=== PATIENT | female | born 1965 | race Caucasian/White ===

== ENCOUNTER 2023-09-25 18:43 | Emergency (ER) | payer OTHER ==
[~2023-09-25] VITALS: Ht 160 cm; Wt 62.7 kg
[2023-09-25] MEDS ORDERED: NS 1,000 ML IV SCH (19:40)
[2023-09-25 20:22] LABS: BASO % 0.5 % (0.0-1.0); EOS # 0.1 10^3/uL (0.0-0.5); HEMATOCRIT 39.6 % (36.0-47.0); HEMOGLOBIN 13.3 g/dl (12.0-15.5); LYMPH # 2.8 10^3/uL (1.5-5.0); LYMPH % 43.1 % (24.0-44.0); MEAN CORPUSCULAR HEMOGLOBIN 31.4 pg (27.0-33.0); MEAN CORPUSCULAR HGB CONC 33.6 g/dl (32.0-36.5); MEAN CORPUSCULAR VOLUME 93.4 fl (80.0-96.0); MONO # 0.5 10^3/uL (0.0-0.8); MONO % 7.2 % (2.0-8.0); NEUTROPHILS # 3.1 10^3/uL (1.5-8.5); PLATELET COUNT, AUTOMATED 233 10^3/uL (150-450); RED BLOOD COUNT 4.24 10^6/uL (4.00-5.40); WHITE BLOOD COUNT 6.5 10^3/uL (4.0-10.0)
[2023-09-25 20:46] LABS: CK-MB VALUE MASS < 1.0 NG/ML (<3.6); LIPASE 36 U/L (12-53)
[2023-09-25 20:48] LABS: ALBUMIN 3.4 G/DL (3.2-5.2); ALKALINE PHOSPHATASE 32 U/L (46-116); ALT/SGPT 18 U/L (7.0-40); AST/SGOT 15 U/L (<34); BILIRUBIN,TOTAL 0.3 MG/DL (0.3-1.2); BLOOD UREA NITROGEN 7 MG/DL (9-23); CALCIUM LEVEL 8.7 MG/DL (8.5-10.1); CARBON DIOXIDE LEVEL 24 MMOL/L (20-31); CHLORIDE LEVEL 115 MMOL/L (98-107); CPK CREATINE PHOSPHOKINASE 64 U/L (34-145); CREATININE FOR GFR 0.89 MG/DL (0.55-1.30); GLOMERULAR FILTRATION RATE > 60.0 (>51); GLUCOSE, FASTING 89 MG/DL (60-100); MB/CK RELATIVE INDEX 1.56 (< OR =4); POTASSIUM SERUM 3.5 MMOL/L (3.5-5.1); SODIUM LEVEL 145 MMOL/L (136-145); TOTAL PROTEIN 5.7 G/DL (5.7-8.2)
[2023-09-25 20:50] LABS: THYROID STIMULATING HORMONE 0.306 uIU/ML (0.55-4.78)
[2023-09-25] MEDS ORDERED: ONDANSETRON 4MG 2ML VIAL IV ONE (21:40)
[2023-09-25] MEDS ORDERED: ISOVUE-370 76% 100ML VIAL As Ordered ONE (21:46)
[2023-09-25 23:16] VITALS: BP 118/77; TEMP 98.1
[2023-09-25 23:18] VITALS: O2SAT 100
== END 2023-09-26 00:03 | disposition home or self-care (01) ==
LOC: M ED 18:43
DX: R00.1 Bradycardia, unspecified (principal); R53.1 Weakness; I10 Essential (primary) hypertension; G90.A Postural orthostatic tachycardia syndrome [POTS]; G43.909 Migraine, unspecified, not intractable, without status migrainosus; E07.9 Disorder of thyroid, unspecified; F32.A Depression, unspecified; Z88.5 Allergy status to narcotic agent; Z88.8 Allergy status to other drugs, medicaments and biological substances; Z79.899 Other long term (current) drug therapy
CPT/HCPCS: 70450; 71045; 71260; 74177; 80053; 81001; 82550; 82553; 83690; 83735; 83880; 83970; 84100; 84443; 84484; 85025; 87040; 87486; 87581; 87633; 87798; 93005; 96374; 99285; J2405; Q9967

== ENCOUNTER → 2023-12-17 | Outpatient (CLI) | payer OTHER ==
[~2023-12-17] MED LIST: ASPI81TA26 PO; ATOR40TA75 PO; B-COTAB26 PO; D3 S1CAP3 PO; FLUD0.1T PO; FREM225A SQ; HYDR-4571 PO; HYDR200T46 PO; KRIL1CAP PO; LEVO75TA4 PO; LISI10TA22 PO; LISI5TAB11 PO; LORA1TAB23 PO; MAGN400C PO; MELA10CA6 PO; METO1TAB32 PO; NUED20CA PO; OMEP-173 PO; PARO40TA2 PO; PRAM1TAB7 PO; PROB250C PO; TIZA2TA PO; TOPI100T9 PO; TRAZ-252 PO; ZINC100T3 PO
== END ==
LOC: M WHC 10:49
PROVIDERS: ATTEND Nurse Practitioner Family
DX: Z12.31 Encounter for screening mammogram for malignant neoplasm of breast (principal); N63.21 Unspecified lump in the left breast, upper outer quadrant

== ENCOUNTER 2024-01-30 12:18 | Day surgery (SDC) | payer OTHER ==
[~2024-01-30] VITALS: Ht 162.6 cm; Wt 62.6 kg
[~2024-01-30 12:18] MED LIST changes: +AMLO1TAB24 PO; +NS 1,000 ML IV ONE
[2024-01-30] MEDS ORDERED: IMIT100T PO (12:39)
[2024-01-30] MEDS ORDERED: fentaNYL 100 MCG/2 ML INJECTION As Ordered ONE (12:51)
[2024-01-30] MEDS ORDERED: propofoL 500 MG/50 ML VIAL As Ordered ONE (12:54)
[2024-01-30] MEDS ORDERED: LIDOCAINE 2% 100MG/5ML SDV (FOR ANES.) As Ordered ONE (12:54)
[2024-01-30] MEDS ORDERED: ePHEDrine SULFATE 25 MG/5 ML(5MG/ML) SYRINGE As Ordered ONE (13:47)
[2024-01-30] MEDS ORDERED: PHENYLephrine 500MCG 5ML (100MCG/ML) SYRINGE As Ordered ONE (14:08)
[2024-01-30 14:14] VITALS: TEMP 98.5
[2024-01-30 14:30] VITALS: BP 112/74; O2SAT 100
== END 2024-01-30 14:44 | disposition home or self-care (01) ==
LOC: M OPP 12:18
PROVIDERS: ATTEND Internal Medicine Gastroenterology
DX: K64.8 Other hemorrhoids (principal); K64.4 Residual hemorrhoidal skin tags; K63.89 Other specified diseases of intestine; K52.9 Noninfective gastroenteritis and colitis, unspecified; K44.9 Diaphragmatic hernia without obstruction or gangrene; K22.89 Other specified disease of esophagus; K31.84 Gastroparesis; G47.30 Sleep apnea, unspecified; R07.9 Chest pain, unspecified; Z79.02 Long term (current) use of antithrombotics/antiplatelets; Z88.1 Allergy status to other antibiotic agents; Z88.5 Allergy status to narcotic agent; Z88.8 Allergy status to other drugs, medicaments and biological substances
CPT/HCPCS: 43239; 45380; 45385; 88305; J2371; J3010

== ENCOUNTER 2024-02-24 15:41 | Emergency (ER) | payer OTHER ==
[~2024-02-24] VITALS: Ht 160 cm; Wt 61.8 kg
[~2024-02-24 15:41] MED LIST changes: +IMIT100T PO; -NS 1,000 ML IV ONE
[2024-02-24 16:04] VITALS: TEMP 98.3
[2024-02-24 16:46] LABS: BASO # 0.1 10^3/uL (0.0-0.2); BASO % 0.7 % (0.0-1.0); EOS # 0.2 10^3/uL (0.0-0.5); EOS % 2.2 % (0.0-3.0); HEMATOCRIT 39.6 % (36.0-47.0); HEMOGLOBIN 13.5 g/dl (12.0-15.5); LYMPH # 2.4 10^3/uL (1.5-5.0); LYMPH % 27.6 % (24.0-44.0); MEAN CORPUSCULAR HEMOGLOBIN 31.6 pg (27.0-33.0); MEAN CORPUSCULAR HGB CONC 34.1 g/dl (32.0-36.5); MEAN CORPUSCULAR VOLUME 92.7 fl (80.0-96.0); MONO # 0.8 10^3/uL (0.0-0.8); MONO % 9.6 % (2.0-8.0); NEUTROPHILS # 5.2 10^3/uL (1.5-8.5); NEUTROPHILS % 59.7 % (36.0-66.0); PLATELET COUNT, AUTOMATED 261 10^3/uL (150-450); RED BLOOD COUNT 4.27 10^6/uL (4.00-5.40); WHITE BLOOD COUNT 8.8 10^3/uL (4.0-10.0)
[2024-02-24 17:24] LABS: INR 0.96; PARTIAL THROMBOPLASTIN TIME 27.8 SECONDS (24.8-34.2); PROTHROMBIN TIME 12.5 SECONDS (12.5-14.5)
[2024-02-24] MEDS ORDERED: ISOVUE-370 76% 100ML VIAL As Ordered ONE (17:48)
[2024-02-24] MEDS: MORPHINE 2 MG/ML 1ML VIAL IV PRN (17:54)
[2024-02-24] MEDS ORDERED: ONDANSETRON 4MG 2ML VIAL As Ordered ONE (18:01)
[2024-02-24 18:07] LABS: LIPASE 33 U/L (12-53)
[2024-02-24 18:10] LABS: ALBUMIN 3.8 G/DL (3.2-5.2); ALKALINE PHOSPHATASE 47 U/L (46-116); ALT/SGPT 35 U/L (7.0-40); AST/SGOT 24 U/L (<34); BILIRUBIN,DIRECT 0.2 MG/DL (<0.4); BILIRUBIN,TOTAL 0.6 MG/DL (0.3-1.2); BLOOD UREA NITROGEN 8 MG/DL (9-23); CALCIUM LEVEL 9.2 MG/DL (8.5-10.1); CARBON DIOXIDE LEVEL 26 MMOL/L (20-31); CHLORIDE LEVEL 105 MMOL/L (98-107); CK-MB VALUE MASS < 1.0 NG/ML (<3.6); CREATININE FOR GFR 0.85 MG/DL (0.55-1.30); GLOMERULAR FILTRATION RATE > 60.0 (>51); GLUCOSE, FASTING 83 MG/DL (60-100); POTASSIUM SERUM 3.6 MMOL/L (3.5-5.1); SODIUM LEVEL 139 MMOL/L (136-145); TOTAL PROTEIN 6.2 G/DL (5.7-8.2)
[2024-02-24 18:12] LABS: FREE T4 1.41 NG/DL (0.89-1.76); THYROID STIMULATING HORMONE 1.805 uIU/ML (0.55-4.78)
[2024-02-24 18:17] LABS: CPK CREATINE PHOSPHOKINASE 108 U/L (34-145); MB/CK RELATIVE INDEX 0.92 (< OR =4)
[2024-02-24] MEDS: ONDANSETRON 4MG 2ML VIAL IV ONE (18:28)
[2024-02-24 19:11] LABS: CK-MB VALUE MASS < 1.0 NG/ML (<3.6)
[2024-02-24] MEDS: MAALOX 30 ML SUSP *UDC PO ONE ×2 (19:11→22:15)
[2024-02-24] MEDS: NITROGLYCERIN 2% OINT 1 GM *U/D* PKT TOP ONE (19:25)
[2024-02-24 19:29] LABS: CPK CREATINE PHOSPHOKINASE 103 U/L (34-145); MB/CK RELATIVE INDEX 0.97 (< OR =4)
[2024-02-24] MEDS: MORPHINE 2 MG/ML 1ML VIAL IV ONE (22:07)
[2024-02-24] MEDS: NS 1,000 ML IV ONE (22:07)
[2024-02-24] MEDS: PANTOPRAZOLE 40MG VIAL IV ONE (22:07)
[2024-02-24] MEDS: PROMETHAZINE 25MG/ML 1ML VIAL IM ONE (22:08)
[2024-02-24] MEDS: GASTROGRAFIN SOLUTION 30ML PO SCH (22:08)
[2024-02-25] MEDS ORDERED: PROT1TAB2 PO (00:29)
[2024-02-25] MEDS ORDERED: MAALSUS19 PO (00:29)
[2024-02-25 00:30] VITALS: O2SAT 91
[2024-02-25 00:45] VITALS: BP 87/52
[2024-02-25] MEDS ORDERED: METOPROLOL TART 25 MG TABLET PO ONE (01:00)
== END 2024-02-25 01:02 | disposition home or self-care (01) ==
LOC: M ED 15:41
DX: K29.70 Gastritis, unspecified, without bleeding (principal); R07.9 Chest pain, unspecified; I10 Essential (primary) hypertension; K21.9 Gastro-esophageal reflux disease without esophagitis; Z87.19 Personal history of other diseases of the digestive system; F17.290 Nicotine dependence, other tobacco product, uncomplicated; Z79.82 Long term (current) use of aspirin; Z79.899 Other long term (current) drug therapy; Z88.5 Allergy status to narcotic agent; Z88.8 Allergy status to other drugs, medicaments and biological substances
CPT/HCPCS: 71045; 71275; 74176; 74177; 80047; 80048; 80076; 82550; 82553; 83690; 84439; 84443; 84484; 85025; 85610; 85730; 93005; 93041; 94760; 96361; 96372; 96374; 96375; 96376; 99285; C9113; J2405; J2550; Q9963; Q9967

== ENCOUNTER 2024-06-12 10:47 | Emergency (ER) | payer OTHER ==
[~2024-06-12] VITALS: Ht 162.6 cm; Wt 62.7 kg
[~2024-06-12 10:47] MED LIST changes: +MAALSUS19 PO; +PROT1TAB2 PO
[2024-06-12 11:17] LABS: BASO % 0.6 % (0.0-1.0); EOS # 0.1 10^3/uL (0.0-0.5); EOS % 1.9 % (0.0-3.0); HEMATOCRIT 41.7 % (36.0-47.0); HEMOGLOBIN 14.4 g/dl (12.0-15.5); LYMPH # 1.9 10^3/uL (1.5-5.0); MEAN CORPUSCULAR HGB CONC 34.5 g/dl (32.0-36.5); MEAN CORPUSCULAR VOLUME 89.9 fl (80.0-96.0); MONO # 0.6 10^3/uL (0.0-0.8); MONO % 9.2 % (2.0-8.0); NEUTROPHILS # 4.2 10^3/uL (1.5-8.5); NEUTROPHILS % 60.2 % (36.0-66.0); PLATELET COUNT, AUTOMATED 218 10^3/uL (150-450); RED BLOOD COUNT 4.64 10^6/uL (4.00-5.40); WHITE BLOOD COUNT 6.9 10^3/uL (4.0-10.0)
[2024-06-12 11:37] LABS: INR 0.98; PROTHROMBIN TIME 12.7 SECONDS (12.5-14.5)
[2024-06-12 11:46] LABS: LIPASE 36 U/L (12-53)
[2024-06-12 11:48] LABS: CPK CREATINE PHOSPHOKINASE 95 U/L (34-145)
[2024-06-12 11:52] LABS: ALBUMIN 3.9 G/DL (3.2-5.2); ALKALINE PHOSPHATASE 52 U/L (46-116); ALT/SGPT 26 U/L (7.0-40); AST/SGOT 18 U/L (<34); BILIRUBIN,DIRECT 0.2 MG/DL (<0.4); BILIRUBIN,TOTAL 0.6 MG/DL (0.3-1.2); CK-MB VALUE MASS < 1.0 NG/ML (<3.6); MB/CK RELATIVE INDEX 1.05 (< OR =4); TOTAL PROTEIN 6.8 G/DL (5.7-8.2)
[2024-06-12] MEDS ORDERED: OXYC-517 (12:00)
[2024-06-12] MEDS: LORazepam 1 MG TAB PO STA (12:16)
[2024-06-12] MEDS: IPRATROPIUM 0.5MG/ALBUTEROL 2.5MG INH SOL UD 3ML (DUONEB) NEB SCH (13:10)
[2024-06-12] MEDS: LORazepam 2 MG/ML 1ML VIAL IV STA (14:45)
[2024-06-12 16:00] VITALS: BP 161/79; TEMP 98; O2SAT 100
== END 2024-06-12 16:45 | disposition home or self-care (01) ==
LOC: EDBD 10:47 → M ED 10:47
DX: R07.89 Other chest pain (principal); I11.9 Hypertensive heart disease without heart failure; Z79.899 Other long term (current) drug therapy; Z88.5 Allergy status to narcotic agent; Z88.8 Allergy status to other drugs, medicaments and biological substances
CPT/HCPCS: 71045; 80047; 80076; 82550; 82553; 83690; 84484; 85025; 85610; 93005; 93041; 94760; 96374; 99285; J2060

== ENCOUNTER 2024-07-15 10:47 | Observation (INO) | payer OTHER ==
[~2024-07-15] VITALS: Ht 162.6 cm; Wt 59.5 kg
[~2024-07-15 10:47] MED LIST changes: +FLUDROCORTISONE ACETATE 0.1 MG TAB PO SCH; +LEVOTHYROXINE 75MCG TABLET (0.075MG) PO SCH; +METOPROLOL SUCC *XL* 25MG TAB (TopROL *XL*) PO SCH; +OXYC-517 PO; +amLODIPine 5 MG TAB PO SCH
[2024-07-15 11:18] LABS: VENOUS BASE EXCESS 1.5 (-2.0-2.0); VENOUS HCO3 21.7 MMOL/L (23.0-27.0); VENOUS O2 SATURATION 68.5 % (60.0-80.0); VENOUS PARTIAL PRESSURE CO2 24.3 mmHg (38.0-50.0); VENOUS PARTIAL PRESSURE O2 28.4 mmHg (30.0-50.0); VENOUS PH 7.569 UNITS (7.330-7.430); VENOUS TOTAL CO2 22.5 MMOL/L (24.0-28.0)
[2024-07-15 11:27] LABS: BASO # 0.1 10^3/uL (0.0-0.2); BASO % 0.7 % (0.0-1.0); EOS % 0.4 % (0.0-3.0); HEMATOCRIT 42.7 % (36.0-47.0); HEMOGLOBIN 14.5 g/dl (12.0-15.5); LYMPH # 1.9 10^3/uL (1.5-5.0); LYMPH % 28.7 % (24.0-44.0); MEAN CORPUSCULAR HEMOGLOBIN 30.2 pg (27.0-33.0); MONO # 0.6 10^3/uL (0.0-0.8); MONO % 9.2 % (2.0-8.0); NEUTROPHILS # 4.1 10^3/uL (1.5-8.5); NEUTROPHILS % 60.9 % (36.0-66.0); PLATELET COUNT, AUTOMATED 254 10^3/uL (150-450); WHITE BLOOD COUNT 6.7 10^3/uL (4.0-10.0)
[2024-07-15 11:45] LABS: ETHYL ALCOHOL (ETHANOL) < 0.003 % (0.000-0.010)
[2024-07-15] MEDS: METOCLOPRAMIDE INJ 10MG/2ML VIAL IV ONE (11:45)
[2024-07-15] MEDS: PANTOPRAZOLE 40MG VIAL IV ONE (11:45)
[2024-07-15 11:47] LABS: ALBUMIN 3.7 G/DL (3.2-5.2); ALKALINE PHOSPHATASE 46 U/L (35-104); ALT/SGPT 27 U/L (7.0-40); AST/SGOT 29 U/L (<34); BILIRUBIN,DIRECT 0.1 MG/DL (<0.4); BILIRUBIN,TOTAL 0.6 MG/DL (0.3-1.2); BLOOD UREA NITROGEN 9 MG/DL (9-23); CALCIUM LEVEL 9.1 MG/DL (8.5-10.1); CARBON DIOXIDE LEVEL 22 MMOL/L (20-31); CHLORIDE LEVEL 112 MMOL/L (98-107); CK-MB VALUE MASS < 1.0 NG/ML (<3.6); CREATININE FOR GFR 0.72 MG/DL (0.55-1.30); GLOMERULAR FILTRATION RATE > 60.0 (>51); GLUCOSE, FASTING 105 MG/DL (60-100); OSMOLALITY SERUM 302 MOSM/KG (275-295); POTASSIUM SERUM 3.8 MMOL/L (3.5-5.1); SALICYLATE LEVEL < 3.0 MG/DL (<30); SODIUM LEVEL 143 MMOL/L (136-145); TOTAL PROTEIN 6.8 G/DL (5.7-8.2)
[2024-07-15 11:48] LABS: THYROID STIMULATING HORMONE 0.744 uIU/ML (0.55-4.78)
[2024-07-15 11:53] LABS: CPK CREATINE PHOSPHOKINASE 79 U/L (34-145); MB/CK RELATIVE INDEX 1.26 (< OR =4)
[2024-07-15] MEDS: NS 500 ML IV ONE ×2 (12:01→13:51)
[2024-07-15] MEDS: LORazepam 2 MG/ML 1ML VIAL IV STA ×3 (12:15→13:34)
[2024-07-15] MEDS: diphenhydrAMINE 50MG/ML VIAL IV STA (12:15)
[2024-07-15] MEDS ORDERED: ISOVUE-370 76% 100ML VIAL As Ordered ONE (13:29)
[2024-07-15 13:30] LABS: CK-MB VALUE MASS < 1.0 NG/ML (<3.6); CPK CREATINE PHOSPHOKINASE 82 U/L (34-145); MB/CK RELATIVE INDEX 1.21 (< OR =4)
[2024-07-15] MEDS: NORCO, ANEXSIA 5/325MG TABLET (HYDROcodone/ACETAMINOPHEN) PO ONE (13:51)
[2024-07-15] MEDS ORDERED: MAALSUS19 PO (14:24)
[2024-07-15] MEDS ORDERED: LISI20TA33 PO (14:24)
[2024-07-15] MEDS ORDERED: HOME MED LIST COMPLETE! XX SCH (14:25)
[2024-07-15] MEDS ORDERED: OMEP-173 PO (14:26)
[2024-07-15] MEDS: tiZANidine 4 MG TAB PO ONE (14:54)
[2024-07-15] MEDS ORDERED: NS 1,000 ML IV SCH (15:15)
[2024-07-15] MEDS ORDERED: MOM 30ML SUSPENSION UDC PO PRN (15:15)
[2024-07-15] MEDS ORDERED: MAALOX 30 ML SUSP *UDC PO PRN (15:15)
[2024-07-15] MEDS ORDERED: ACETAMINOPHEN 325 MG TAB PO PRN (15:15)
[2024-07-15] MEDS ORDERED: tiZANidine 4 MG TAB PO PRN (15:35)
[2024-07-15] MEDS ORDERED: SUMAtriptan SUCCINATE 25 MG TAB PO PRN (15:35)
[2024-07-15 15:36] VITALS: BP 156/82; TEMP 97.8; O2SAT 100
[2024-07-15] MEDS ORDERED: LORazepam 1 MG TAB PO SCH (16:00)
[2024-07-15 16:32] LABS: PROCALCITONIN <0.04 ng/ml
[2024-07-15] MEDS ORDERED: DOCUSATE SODIUM 100MG CAPSULE PO SCH (21:00)
[2024-07-15] MEDS ORDERED: ATORVASTATIN 20 MG TAB PO SCH (21:00)
[2024-07-15] MEDS ORDERED: traZODone 50 MG TAB PO SCH (21:00)
[2024-07-15] MEDS ORDERED: OMEPRAZOLE 20MG CAP PO SCH (21:00)
[2024-07-15] MEDS ORDERED: PRAMIPEXOLE 1 MG TAB PO SCH (21:00)
[2024-07-15] MEDS ORDERED: NORCO, ANEXSIA 5/325MG TABLET (HYDROcodone/ACETAMINOPHEN) PO SCH (21:00)
[2024-07-15 22:38] LABS: AMPHETAMINES LEVEL URINE NEGATIVE (NEGATIVE); BARBITURATES URINE NEGATIVE (NEGATIVE); BENZODIAZEPINES URINE NEGATIVE (NEGATIVE); COCAINE METABOLITE URINE NEGATIVE (NEGATIVE); METHADONE URINE NEGATIVE (NEGATIVE); OPIATES URINE NEGATIVE (NEGATIVE); PHENCYCLIDINE URINE NEGATIVE (NEGATIVE)
[2024-07-15 22:41] LABS: CANNABINOIDS URINE POSITIVE (NEGATIVE)
[2024-07-16] MEDS ORDERED: ENOXAPARIN 40MG/0.4ML SYRINGE (J1650 PER 10MG) SC SCH (09:00)
== END 2024-07-15 16:16 | disposition left against medical advice (07) ==
LOC: M ED 10:47 → EDBD 10:47 → M ED INP 10:48
PROVIDERS: ADMIT Internal Medicine; ATTEND Internal Medicine
DX: R53.1 Weakness (principal); G25.0 Essential tremor; R53.81 Other malaise; R32 Unspecified urinary incontinence; R11.0 Nausea; R10.32 Left lower quadrant pain; R10.13 Epigastric pain; I10 Essential (primary) hypertension; G90.A Postural orthostatic tachycardia syndrome [POTS]; E78.5 Hyperlipidemia, unspecified; I31.39 Other pericardial effusion (noninflammatory); G47.33 Obstructive sleep apnea (adult) (pediatric); E03.9 Hypothyroidism, unspecified; F41.9 Anxiety disorder, unspecified; G47.00 Insomnia, unspecified; G43.909 Migraine, unspecified, not intractable, without status migrainosus; K29.70 Gastritis, unspecified, without bleeding; L40.50 Arthropathic psoriasis, unspecified; M19.90 Unspecified osteoarthritis, unspecified site; M79.7 Fibromyalgia; M35.7 Hypermobility syndrome; G25.81 Restless legs syndrome; M48.02 Spinal stenosis, cervical region; M50.220 Other cervical disc displacement, mid-cervical region, unspecified level; M47.812 Spondylosis without myelopathy or radiculopathy, cervical region; Z87.440 Personal history of urinary (tract) infections; Z98.1 Arthrodesis status; Z90.710 Acquired absence of both cervix and uterus; Z90.49 Acquired absence of other specified parts of digestive tract; Z90.89 Acquired absence of other organs; Z98.890 Other specified postprocedural states; Z87.891 Personal history of nicotine dependence; Z88.8 Allergy status to other drugs, medicaments and biological substances; Z79.899 Other long term (current) drug therapy; Z79.890 Hormone replacement therapy; Z79.891 Long term (current) use of opiate analgesic; Z66 Do not resuscitate
CPT/HCPCS: 70450; 71045; 74177; 80047; 80048; 80076; 80143; 80307; 81001; 82077; 82140; 82550; 82553; 82803; 83605; 83930; 84145; 84443; 84484; 85025; 87040; 93005; 93041; 94760; 96374; 96375; 96376; 99285; J1200; J2060; J2470; J2765; Q9967

== ENCOUNTER 2024-07-17 14:21 | Observation (INO) | payer OTHER ==
[~2024-07-17] VITALS: Ht 162.6 cm; Wt 57.9 kg
[~2024-07-17 14:21] MED LIST changes: -FLUDROCORTISONE ACETATE 0.1 MG TAB PO SCH; -LEVOTHYROXINE 75MCG TABLET (0.075MG) PO SCH; +LISI20TA33 PO; -METOPROLOL SUCC *XL* 25MG TAB (TopROL *XL*) PO SCH; -amLODIPine 5 MG TAB PO SCH
[2024-07-17 15:34] LABS: BASO % 0.3 % (0.0-1.0); HEMATOCRIT 41.3 % (36.0-47.0); HEMOGLOBIN 14.5 g/dl (12.0-15.5); LYMPH # 2.5 10^3/uL (1.5-5.0); MEAN CORPUSCULAR HEMOGLOBIN 30.3 pg (27.0-33.0); MEAN CORPUSCULAR HGB CONC 35.1 g/dl (32.0-36.5); MEAN CORPUSCULAR VOLUME 86.2 fl (80.0-96.0); MONO # 1.1 10^3/uL (0.0-0.8); MONO % 9.5 % (2.0-8.0); NEUTROPHILS % 68.9 % (36.0-66.0); PLATELET COUNT, AUTOMATED 332 10^3/uL (150-450); RED BLOOD COUNT 4.79 10^6/uL (4.00-5.40); WHITE BLOOD COUNT 11.7 10^3/uL (4.0-10.0)
[2024-07-17 16:13] LABS: LIPASE 35 U/L (12-53)
[2024-07-17 16:14] LABS: CK-MB VALUE MASS 2.7 NG/ML (<3.6)
[2024-07-17 16:15] LABS: AMYLASE 49 U/L (30-118)
[2024-07-17 16:16] LABS: ALBUMIN 4.2 G/DL (3.2-5.2); ALKALINE PHOSPHATASE 49 U/L (35-104); ALT/SGPT 29 U/L (7.0-40); AST/SGOT 31 U/L (<34); BILIRUBIN,DIRECT 0.3 MG/DL (<0.4); BILIRUBIN,TOTAL 0.7 MG/DL (0.3-1.2); BLOOD UREA NITROGEN < 5 MG/DL (9-23); CALCIUM LEVEL 9.6 MG/DL (8.5-10.1); CARBON DIOXIDE LEVEL 20 MMOL/L (20-31); CHLORIDE LEVEL 109 MMOL/L (98-107); CPK CREATINE PHOSPHOKINASE 689 U/L (34-145); CREATININE FOR GFR 0.64 MG/DL (0.55-1.30); GLOMERULAR FILTRATION RATE > 60.0 (>51); GLUCOSE, FASTING 113 MG/DL (60-100); MB/CK RELATIVE INDEX 0.39 (< OR =4); POTASSIUM SERUM 3.1 MMOL/L (3.5-5.1); SODIUM LEVEL 143 MMOL/L (136-145); TOTAL PROTEIN 6.8 G/DL (5.7-8.2)
[2024-07-17] MEDS: NS 1,000 ML IV ONE ×2 (16:19→17:31)
[2024-07-17 17:30] LABS: MB/CK RELATIVE INDEX 0.35 (< OR =4)
[2024-07-17] MEDS: ONDANSETRON 4MG 2ML VIAL IV ONE (17:31)
[2024-07-17] MEDS: POTASSIUM CHLORIDE 10MEQ SR TABLET PO ONE (17:31)
[2024-07-17] MEDS: KCL 10MEQ/100ML SWI (KRUN) 10 MEQ in IV 1 EA IV ONE (17:32)
[2024-07-17] MEDS ORDERED: ISOVUE-370 76% 100ML VIAL As Ordered ONE (18:11)
[2024-07-17] MEDS ORDERED: ACETAMINOPHEN 325 MG TAB PO PRN (18:40)
[2024-07-17] MEDS ORDERED: SENN-186 PO (18:55)
[2024-07-17] MEDS ORDERED: HOME MED LIST COMPLETE! XX SCH (18:55)
[2024-07-17] MEDS ORDERED: HYDR-161 PO (18:55)
[2024-07-17] MEDS ORDERED: LORA2TAB14 PO (18:55)
[2024-07-17 19:05] LABS: PROCALCITONIN <0.04 ng/ml
[2024-07-17] MEDS: MORPHINE 2 MG/ML 1ML VIAL IV PRN (19:44)
[2024-07-17] MEDS: NS 1,000 ML IV SCH (19:48)
[2024-07-17] MEDS ORDERED: LORazepam 0.5 MG TAB PO SCH (21:00)
[2024-07-17] MEDS: FLUTICASONE PROP 0.05% NASAL SPRAY 16 GM (FLONASE) NARES SCH (21:00)
[2024-07-17 21:07] VITALS: BP 185/101; TEMP 101.1; O2SAT 99
[2024-07-17] MEDS: SUCRALFATE SUSP 1GM/10ML UD PO SCH (21:47)
[2024-07-17] MEDS: PANTOPRAZOLE 40MG VIAL IV SCH (21:47)
[2024-07-17] MEDS: PRAMIPEXOLE 1 MG TAB PO SCH (21:48)
[2024-07-17] MEDS: traZODone 50 MG TAB PO SCH (21:48)
[2024-07-17] MEDS: LORazepam 1 MG TAB PO SCH (21:48)
[2024-07-17] MEDS: PARoxetine 20MG TABLET PO SCH (21:48)
[2024-07-17] MEDS: ATORVASTATIN 20 MG TAB PO SCH (21:48)
[2024-07-17] MEDS: RAMELTEON 8 MG TAB (ROZEREM) PO SCH (21:48)
[2024-07-17] MEDS: ACETAMINOPHEN *IV* 1,000 MG in IV 1 EA IV ONE (21:48)
[2024-07-17] MEDS ORDERED: SODIUM CHLORIDE NASAL 0.65% SPRAY BTL (OCEAN) PRN (23:55)
[2024-07-17 23:58] VITALS: BP 162/87; TEMP 97.1; O2SAT 100
[2024-07-18] MEDS: SUMAtriptan SUCCINATE 25 MG TAB PO PRN (01:21)
[2024-07-18] MEDS: ONDANSETRON 4MG 2ML VIAL IV PRN (02:35)
[2024-07-18 03:50] VITALS: BP 159/86; TEMP 97.3; O2SAT 99
[2024-07-18 05:26] LABS: BASO % 0.3 % (0.0-1.0); EOS % 0.2 % (0.0-3.0); HEMATOCRIT 39.6 % (36.0-47.0); HEMOGLOBIN 13.3 g/dl (12.0-15.5); LYMPH # 2.5 10^3/uL (1.5-5.0); LYMPH % 20.1 % (24.0-44.0); MEAN CORPUSCULAR HEMOGLOBIN 30.1 pg (27.0-33.0); MEAN CORPUSCULAR HGB CONC 33.6 g/dl (32.0-36.5); MEAN CORPUSCULAR VOLUME 89.6 fl (80.0-96.0); MONO # 1.6 10^3/uL (0.0-0.8); MONO % 12.4 % (2.0-8.0); NEUTROPHILS # 8.4 10^3/uL (1.5-8.5); NEUTROPHILS % 66.8 % (36.0-66.0); PLATELET COUNT, AUTOMATED 284 10^3/uL (150-450); RED BLOOD COUNT 4.42 10^6/uL (4.00-5.40); WHITE BLOOD COUNT 12.6 10^3/uL (4.0-10.0)
[2024-07-18] MEDS: LEVOTHYROXINE 75MCG TABLET (0.075MG) PO SCH (05:44)
[2024-07-18 05:55] LABS: ALBUMIN 3.8 G/DL (3.2-5.2); ALKALINE PHOSPHATASE 48 U/L (35-104); ALT/SGPT 32 U/L (7.0-40); AST/SGOT 48 U/L (<34); BILIRUBIN,TOTAL 0.8 MG/DL (0.3-1.2); BLOOD UREA NITROGEN < 5 MG/DL (9-23); CALCIUM LEVEL 9.1 MG/DL (8.5-10.1); CARBON DIOXIDE LEVEL 24 MMOL/L (20-31); CHLORIDE LEVEL 112 MMOL/L (98-107); CREATININE FOR GFR 0.66 MG/DL (0.55-1.30); GLOMERULAR FILTRATION RATE > 60.0 (>51); GLUCOSE, FASTING 92 MG/DL (60-100); MAGNESIUM LEVEL 1.8 MG/DL (1.8-2.4); POTASSIUM SERUM 3.4 MMOL/L (3.5-5.1); SODIUM LEVEL 143 MMOL/L (136-145); TOTAL PROTEIN 6.6 G/DL (5.7-8.2)
[2024-07-18 08:09] VITALS: BP 158/77; TEMP 97.5; O2SAT 99
[2024-07-18] MEDS: POTASSIUM CHLORIDE 10MEQ SR TABLET PO ONE (08:22)
[2024-07-18] MEDS: FLUDROCORTISONE ACETATE 0.1 MG TAB PO SCH (08:23)
[2024-07-18] MEDS: amLODIPine 5 MG TAB PO SCH (08:23)
[2024-07-18] MEDS: METOPROLOL SUCC *XL* 25MG TAB (TopROL *XL*) PO SCH (08:23)
[2024-07-18] MEDS: ENOXAPARIN 40MG/0.4ML SYRINGE (J1650 PER 10MG) SC SCH (08:24)
[2024-07-18] MEDS ORDERED: LORA2TAB14 PO (10:39)
[2024-07-18] MEDS ORDERED: CARA1TAB6 PO (10:39)
[2024-07-18] MEDS ORDERED: PROT1TAB2 PO (10:39)
[2024-07-18] MEDS ORDERED: OXYC-517 PO ×2 (10:39→13:17)
[2024-07-18 12:12] VITALS: BP 167/80; TEMP 97.8; O2SAT 98
[2024-07-18] MEDS ORDERED: ATIV1TAB7 PO (13:17)
[2024-07-18 13:21] VITALS: BP 150/80
[2024-07-18 13:23] VITALS: BP 150/80
[2024-07-18] MEDS: **hydrALAZINE HCL** 25 MG TAB PO ONE (13:23)
[2024-07-18 14:30] VITALS: BP 145/78
== END 2024-07-18 15:02 | disposition home health service (06) ==
LOC: M ED 14:21 → EDBD 14:21 → M ED INP 14:22 → M PCU 20:49
PROVIDERS: ADMIT Internal Medicine; ATTEND Internal Medicine
DX: R10.9 Unspecified abdominal pain (principal); R11.2 Nausea with vomiting, unspecified; R19.7 Diarrhea, unspecified; R50.9 Fever, unspecified; E87.20 Acidosis, unspecified; E87.6 Hypokalemia; R25.1 Tremor, unspecified; R53.1 Weakness; I10 Essential (primary) hypertension; G90.A Postural orthostatic tachycardia syndrome [POTS]; E78.5 Hyperlipidemia, unspecified; G47.33 Obstructive sleep apnea (adult) (pediatric); E03.9 Hypothyroidism, unspecified; E04.1 Nontoxic single thyroid nodule; F41.9 Anxiety disorder, unspecified; G47.00 Insomnia, unspecified; G43.909 Migraine, unspecified, not intractable, without status migrainosus; L40.50 Arthropathic psoriasis, unspecified; M19.90 Unspecified osteoarthritis, unspecified site; M79.7 Fibromyalgia; G25.81 Restless legs syndrome; M35.7 Hypermobility syndrome; M47.812 Spondylosis without myelopathy or radiculopathy, cervical region; M50.20 Other cervical disc displacement, unspecified cervical region; M48.02 Spinal stenosis, cervical region; D80.3 Selective deficiency of immunoglobulin G [IgG] subclasses; Z90.49 Acquired absence of other specified parts of digestive tract; Z90.79 Acquired absence of other genital organ(s); Z98.1 Arthrodesis status; Z90.89 Acquired absence of other organs; Z98.890 Other specified postprocedural states; F17.290 Nicotine dependence, other tobacco product, uncomplicated; Z88.5 Allergy status to narcotic agent; Z79.899 Other long term (current) drug therapy; Z79.890 Hormone replacement therapy
CPT/HCPCS: 36415; 71045; 74177; 80047; 80048; 80053; 80076; 81001; 82150; 82550; 82553; 83605; 83690; 83735; 84145; 84484; 85025; 87040; 87486; 87581; 87633; 87798; 93005; 93041; 96361; 96365; 96366; 96372; 96375; 96376; 99285; J0131; J1650; J2405; J2470; Q9967

== ENCOUNTER 2024-07-20 22:25 | Emergency (ER) | payer OTHER ==
[~2024-07-20] VITALS: Ht 162.6 cm; Wt 59.4 kg
[~2024-07-20 22:25] MED LIST changes: +ATIV1TAB7 PO; +CARA1TAB6 PO; +HYDR-161 PO; +LORA2TAB14 PO; +SENN-186 PO
[2024-07-20 23:56] VITALS: TEMP 98.8
[2024-07-21 00:29] LABS: BASO # 0.1 10^3/uL (0.0-0.2); BASO % 0.8 % (0.0-1.0); EOS # 0.3 10^3/uL (0.0-0.5); EOS % 3.1 % (0.0-3.0); HEMATOCRIT 38.4 % (36.0-47.0); HEMOGLOBIN 13.5 g/dl (12.0-15.5); LYMPH # 2.6 10^3/uL (1.5-5.0); LYMPH % 29.3 % (24.0-44.0); MEAN CORPUSCULAR HGB CONC 35.2 g/dl (32.0-36.5); MEAN CORPUSCULAR VOLUME 88.3 fl (80.0-96.0); MONO % 11.3 % (2.0-8.0); NEUTROPHILS # 4.9 10^3/uL (1.5-8.5); NEUTROPHILS % 55.3 % (36.0-66.0); PLATELET COUNT, AUTOMATED 286 10^3/uL (150-450); RED BLOOD COUNT 4.35 10^6/uL (4.00-5.40); WHITE BLOOD COUNT 8.8 10^3/uL (4.0-10.0)
[2024-07-21 00:51] LABS: LIPASE 55 U/L (12-53)
[2024-07-21 00:53] LABS: ALBUMIN 4.2 G/DL (3.2-5.2); ALKALINE PHOSPHATASE 47 U/L (35-104); ALT/SGPT 54 U/L (7.0-40); AST/SGOT 84 U/L (<34); BILIRUBIN,DIRECT 0.2 MG/DL (<0.4); BILIRUBIN,TOTAL 0.5 MG/DL (0.3-1.2); BLOOD UREA NITROGEN 5 MG/DL (9-23); CALCIUM LEVEL 9.8 MG/DL (8.5-10.1); CARBON DIOXIDE LEVEL 24 MMOL/L (20-31); CHLORIDE LEVEL 108 MMOL/L (98-107); CREATININE FOR GFR 0.63 MG/DL (0.55-1.30); GLOMERULAR FILTRATION RATE > 60.0 (>51); GLUCOSE, FASTING 101 MG/DL (60-100); POTASSIUM SERUM 3.1 MMOL/L (3.5-5.1); SODIUM LEVEL 143 MMOL/L (136-145); TOTAL PROTEIN 6.9 G/DL (5.7-8.2)
[2024-07-21] MEDS ORDERED: ISOVUE-370 76% 100ML VIAL As Ordered ONE (01:58)
[2024-07-21] MEDS: LORazepam 2 MG/ML 1ML VIAL IV STA (02:03)
[2024-07-21] MEDS: ONDANSETRON 4MG 2ML VIAL IV ONE (02:39)
[2024-07-21 04:17] VITALS: BP 174/89; O2SAT 100
[2024-07-21] MEDS ORDERED: VALI5TAB PO (04:17)
[2024-07-21] MEDS ORDERED: POTA10CA70 PO (04:20)
[2024-07-21] MEDS: diazePAM 5MG TABLET PO ONE (04:24)
[2024-07-21] MEDS: POTASSIUM CHLORIDE 10MEQ SR TABLET PO ONE (04:24)
== END 2024-07-21 04:36 | disposition home or self-care (01) ==
LOC: M ED 22:25
DX: E87.6 Hypokalemia (principal); F13.20 Sedative, hypnotic or anxiolytic dependence, uncomplicated; I10 Essential (primary) hypertension; E78.5 Hyperlipidemia, unspecified; F41.1 Generalized anxiety disorder; M79.7 Fibromyalgia; G90.A Postural orthostatic tachycardia syndrome [POTS]; D80.3 Selective deficiency of immunoglobulin G [IgG] subclasses; F17.290 Nicotine dependence, other tobacco product, uncomplicated; Z79.899 Other long term (current) drug therapy; Z88.6 Allergy status to analgesic agent; Z88.5 Allergy status to narcotic agent; Z88.8 Allergy status to other drugs, medicaments and biological substances
CPT/HCPCS: 70491; 71260; 80048; 80076; 83605; 83690; 85025; 87486; 87581; 87633; 87798; 93041; 96374; 96375; 99284; J2060; J2405; Q9967

== ENCOUNTER 2024-07-23 05:10 | Inpatient (IN) | payer OTHER ==
[~2024-07-23] VITALS: Ht 162.6 cm; Wt 56.8 kg
[~2024-07-23 05:10] MED LIST changes: +POTA10CA70 PO; +VALI5TAB PO
[2024-07-23 05:47] LABS: BASO # 0.1 10^3/uL (0.0-0.2); BASO % 0.7 % (0.0-1.0); EOS # 0.1 10^3/uL (0.0-0.5); EOS % 1.1 % (0.0-3.0); HEMATOCRIT 42.7 % (36.0-47.0); HEMOGLOBIN 15.1 g/dl (12.0-15.5); LYMPH # 2.4 10^3/uL (1.5-5.0); LYMPH % 28.5 % (24.0-44.0); MEAN CORPUSCULAR HEMOGLOBIN 30.7 pg (27.0-33.0); MEAN CORPUSCULAR HGB CONC 35.4 g/dl (32.0-36.5); MEAN CORPUSCULAR VOLUME 86.8 fl (80.0-96.0); MONO # 0.7 10^3/uL (0.0-0.8); MONO % 8.7 % (2.0-8.0); NEUTROPHILS # 5.1 10^3/uL (1.5-8.5); NEUTROPHILS % 60.9 % (36.0-66.0); PLATELET COUNT, AUTOMATED 345 10^3/uL (150-450); RED BLOOD COUNT 4.92 10^6/uL (4.00-5.40); WHITE BLOOD COUNT 8.3 10^3/uL (4.0-10.0)
[2024-07-23 06:10] LABS: CK-MB VALUE MASS 1.6 NG/ML (<3.6); INR 0.87; LIPASE 46 U/L (12-53); PROTHROMBIN TIME 12.2 SECONDS (12.5-14.5)
[2024-07-23 06:30] LABS: ALBUMIN 4.4 G/DL (3.2-5.2); ALKALINE PHOSPHATASE 52 U/L (35-104); ALT/SGPT 64 U/L (7.0-40); AST/SGOT 77 U/L (<34); BILIRUBIN,DIRECT 0.3 MG/DL (<0.4); BILIRUBIN,TOTAL 0.7 MG/DL (0.3-1.2); BLOOD UREA NITROGEN < 5 MG/DL (9-23); CALCIUM LEVEL 10.7 MG/DL (8.5-10.1); CARBON DIOXIDE LEVEL 21 MMOL/L (20-31); CHLORIDE LEVEL 109 MMOL/L (98-107); CPK CREATINE PHOSPHOKINASE 1939 U/L (34-145); CREATININE FOR GFR 0.73 MG/DL (0.55-1.30); GLOMERULAR FILTRATION RATE > 60.0 (>51); GLUCOSE, FASTING 119 MG/DL (60-100); MB/CK RELATIVE INDEX 0.08 (< OR =4); POTASSIUM SERUM 3.2 MMOL/L (3.5-5.1); SODIUM LEVEL 143 MMOL/L (136-145); TOTAL PROTEIN 7.1 G/DL (5.7-8.2)
[2024-07-23] MEDS ORDERED: SUCR1TA PO (08:17)
[2024-07-23] MEDS ORDERED: PANT40TA29 PO (08:17)
[2024-07-23] MEDS ORDERED: IBUP200C28 PO (08:17)
[2024-07-23] MEDS ORDERED: ONDA-83 PO (08:17)
[2024-07-23] MEDS ORDERED: ACET1TAB55 PO (08:17)
[2024-07-23] MEDS ORDERED: POTA-150 PO (08:17)
[2024-07-23] MEDS ORDERED: DIAZ5TAB PO (08:17)
[2024-07-23] MEDS ORDERED: MIRA3350 PO (08:17)
[2024-07-23] MEDS ORDERED: TIZA4CAP PO (08:17)
[2024-07-23] MEDS ORDERED: ATOR80TA59 PO (08:17)
[2024-07-23] MEDS ORDERED: TIZA10TA PO (08:19)
[2024-07-23] MEDS ORDERED: HOME MED LIST COMPLETE! XX SCH (08:25)
[2024-07-23] MEDS: PARoxetine 20MG TABLET PO ONE (08:32)
[2024-07-23] MEDS ORDERED: amLODIPine 5 MG TAB PO SCH (09:00)
[2024-07-23] MEDS ORDERED: diazePAM 10MG/2ML SYRINGE IV ONE (10:15)
[2024-07-23 10:31] LABS: ETHYL ALCOHOL (ETHANOL) < 0.003 % (0.000-0.010)
[2024-07-23 10:33] LABS: SALICYLATE LEVEL < 3.0 MG/DL (<30)
[2024-07-23] MEDS: diazePAM 5MG TABLET PO ONE ×2 (10:39→18:13)
[2024-07-23 11:01] LABS: AMPHETAMINES LEVEL URINE NEGATIVE (NEGATIVE); BARBITURATES URINE NEGATIVE (NEGATIVE); COCAINE METABOLITE URINE NEGATIVE (NEGATIVE); METHADONE URINE NEGATIVE (NEGATIVE); OPIATES URINE NEGATIVE (NEGATIVE); PHENCYCLIDINE URINE NEGATIVE (NEGATIVE)
[2024-07-23 11:02] LABS: BENZODIAZEPINES URINE POSITIVE (NEGATIVE); CANNABINOIDS URINE POSITIVE (NEGATIVE)
[2024-07-23] MEDS: MAALOX 30 ML SUSP *UDC PO ONE (12:42)
[2024-07-23] MEDS ORDERED: MOM 30ML SUSPENSION UDC PO PRN (14:40)
[2024-07-23] MEDS ORDERED: diphenhydrAMINE 25MG CAP PO PRN (14:40)
[2024-07-23] MEDS ORDERED: traZODone 50 MG TAB PO PRN (14:40)
[2024-07-23] MEDS ORDERED: MAALOX 30 ML SUSP *UDC PO PRN (14:40)
[2024-07-23] MEDS ORDERED: IBUPROFEN 400MG TAB PO PRN (14:40)
[2024-07-23] MEDS: POTASSIUM CHLORIDE 10MEQ SR TABLET PO STA (16:47)
[2024-07-23 17:18] VITALS: BP 198/115; TEMP 97.3; O2SAT 100
[2024-07-23 18:20] VITALS: BP 163/82
[2024-07-23] MEDS: **hydrALAZINE** 10 MG TAB PO ONE (18:20)
[2024-07-23 20:00] VITALS: BP 159/108; TEMP 98.3; O2SAT 100
[2024-07-23] MEDS ORDERED: NS (Normal Saline) 0.9% 1,000 ML IV SCH (21:40)
[2024-07-23 21:51] VITALS: BP_SYST 144; BP_DIAS 18; BP_DIAS 88; O2SAT 100
[2024-07-23 22:28] LABS: ALBUMIN 4.4 G/DL (3.2-5.2); ALKALINE PHOSPHATASE 55 U/L (35-104); ALT/SGPT 67 U/L (7.0-40); AST/SGOT 71 U/L (<34); BILIRUBIN,TOTAL 0.6 MG/DL (0.3-1.2); BLOOD UREA NITROGEN 8 MG/DL (9-23); CALCIUM LEVEL 10.1 MG/DL (8.5-10.1); CARBON DIOXIDE LEVEL 15 MMOL/L (20-31); CHLORIDE LEVEL 105 MMOL/L (98-107); CPK CREATINE PHOSPHOKINASE 1785 U/L (34-145); CREATININE FOR GFR 0.85 MG/DL (0.55-1.30); GLOMERULAR FILTRATION RATE > 60.0 (>51); GLUCOSE, FASTING 160 MG/DL (60-100); POTASSIUM SERUM 3.2 MMOL/L (3.5-5.1); SODIUM LEVEL 141 MMOL/L (136-145); TOTAL PROTEIN 7.4 G/DL (5.7-8.2)
[2024-07-24] MEDS ORDERED: amLODIPine 5 MG TAB PO SCH (09:00)
== END 2024-07-23 21:47 | disposition short-term general hospital (02) | DRG 881 ==
LOC: M ED 05:10 → EDBD 05:10 → M ED INP 14:38 → M PSY 17:21
PROVIDERS: ADMIT Psychiatry & Neurology Psychiatry; ATTEND Psychiatry & Neurology Psychiatry
DX: F32.A Depression, unspecified (principal); F13.939 Sedative, hypnotic or anxiolytic use, unspecified with withdrawal, unspecified; R07.89 Other chest pain; G40.909 Epilepsy, unspecified, not intractable, without status epilepticus; K31.84 Gastroparesis; Z88.8 Allergy status to other drugs, medicaments and biological substances; Z79.899 Other long term (current) drug therapy

== ENCOUNTER 2024-07-23 21:48 | Inpatient (IN) | payer OTHER ==
[~2024-07-23 21:48] MED LIST changes: +ACET1TAB55 PO; +ATOR80TA59 PO; +DIAZ5TAB PO; +IBUP200C28 PO; +MIRA3350 PO; +ONDA-83 PO; +PANT40TA29 PO; +POTA-150 PO; +SUCR1TA PO; +TIZA10TA PO; +TIZA4CAP PO
[2024-07-23 21:53] VITALS: BP 135/68; TEMP 97.1; O2SAT 99
[2024-07-23 22:04] VITALS: BP 142/82; O2SAT 100
[2024-07-23] MEDS ORDERED: LORazepam 2 MG/ML 1ML VIAL As Ordered ONE (22:33)
[2024-07-23 22:34] VITALS: BP 205/96; O2SAT 99
[2024-07-23 22:52] LABS: ABG BASE EXCESS -14.9 (-2.0-2.0); ABG HCO3 11.9 MMOL/L (22.0-26.0); ABG O2 SATURATION 99.4 % (95.0-99.0); ABG PARTIAL PRESSURE CO2 31.7 mmHg (35.0-45.0); ABG PARTIAL PRESSURE O2 280.9 mmHg (75.0-100.0); ABG STANDARD HCO3 13.3 MMOL/L. (22.0-26.0); ABG TOTAL CO2 12.9 MMOL/L (22.0-29.0); ABG pH (ARTERIAL) 7.194 UNITS (7.350-7.450)
[2024-07-23 22:52] LABS: VENOUS BASE EXCESS -20.7 (-2.0-2.0); VENOUS HCO3 13.3 MMOL/L (23.0-27.0); VENOUS O2 SATURATION 65.5 % (60.0-80.0); VENOUS PARTIAL PRESSURE CO2 69.8 mmHg (38.0-50.0); VENOUS PARTIAL PRESSURE O2 54.4 mmHg (30.0-50.0); VENOUS PH 6.898 UNITS (7.330-7.430); VENOUS STANDARD HCO3 9.4 MMOL/L; VENOUS TOTAL CO2 15.4 MMOL/L (24.0-28.0)
[2024-07-23] MEDS: levETIRAcetam INJection 1,500 MG in D5W 100 ML IV ONE (22:58)
[2024-07-23] MEDS: NS 1,000 ML IV ONE (22:58)
[2024-07-23] MEDS ORDERED: levETIRAcetam INJection 1,500 MG in D5W 100 ML IV ONE (23:00)
[2024-07-23] MEDS ORDERED: levETIRAcetam INJection 500 MG in DEXTROSE 5% (D5W) MINI-BAG PLU 100 ML IV SCH (23:00)
[2024-07-23 23:01] VITALS: BP 101/61; O2SAT 98
[2024-07-23] MEDS: KCL 10MEQ/100ML SWI (KRUN) 10 MEQ in IV 1 EA IV ONE (23:25)
[2024-07-23] MEDS: LORazepam 2 MG/ML 1ML VIAL IV PRN (23:27)
[2024-07-23] MEDS ORDERED: HOME MED LIST COMPLETE! XX SCH (23:30)
[2024-07-24] VITALS (12 sets, daily range): BP systolic 95–161; BP diastolic 57–85; TEMP 97.8–98.5; O2SAT 96–100
[2024-07-24] MEDS: D5W/LR 1,000 ML IV SCH (01:15)
[2024-07-24 05:48] LABS: HEMATOCRIT 36.5 % (36.0-47.0); MEAN CORPUSCULAR HEMOGLOBIN 30.9 pg (27.0-33.0); MEAN CORPUSCULAR HGB CONC 34.5 g/dl (32.0-36.5); MEAN CORPUSCULAR VOLUME 89.5 fl (80.0-96.0); PLATELET COUNT, AUTOMATED 288 10^3/uL (150-450); RED BLOOD COUNT 4.08 10^6/uL (4.00-5.40); WHITE BLOOD COUNT 11.6 10^3/uL (4.0-10.0)
[2024-07-24 05:52] LABS: HEMOGLOBIN 12.6 g/dl (12.0-15.5)
[2024-07-24] MEDS: LEVOTHYROXINE 75MCG TABLET (0.075MG) PO SCH (06:00)
[2024-07-24 06:28] LABS: ALBUMIN 3.6 G/DL (3.2-5.2); ALKALINE PHOSPHATASE 45 U/L (35-104); ALT/SGPT 57 U/L (7.0-40); AST/SGOT 70 U/L (<34); BILIRUBIN,TOTAL 0.6 MG/DL (0.3-1.2); BLOOD UREA NITROGEN 6 MG/DL (9-23); CALCIUM LEVEL 8.9 MG/DL (8.5-10.1); CARBON DIOXIDE LEVEL 22 MMOL/L (20-31); CHLORIDE LEVEL 110 MMOL/L (98-107); CPK CREATINE PHOSPHOKINASE 1593 U/L (34-145); CREATININE FOR GFR 0.71 MG/DL (0.55-1.30); GLOMERULAR FILTRATION RATE > 60.0 (>51); GLUCOSE, FASTING 108 MG/DL (60-100); MAGNESIUM LEVEL 2.2 MG/DL (1.8-2.4); SODIUM LEVEL 143 MMOL/L (136-145); TOTAL PROTEIN 6.4 G/DL (5.7-8.2)
[2024-07-24] MEDS ORDERED: diazePAM 5MG TABLET PO PRN (08:00)
[2024-07-24] MEDS ORDERED: HOME MED LIST COMPLETE! XX SCH (08:15)
[2024-07-24] MEDS: amLODIPine 5 MG TAB PO SCH (08:37)
[2024-07-24] MEDS: lisinopriL 5 MG TAB PO SCH (08:37)
[2024-07-24] MEDS: **hydrALAZINE** 10 MG TAB PO SCH (08:38)
[2024-07-24] MEDS: diazePAM 5MG TABLET PO SCH (08:38)
[2024-07-24] MEDS: tiZANidine 4 MG TAB PO PRN (08:39)
[2024-07-24] MEDS: FLUDROCORTISONE ACETATE 0.1 MG TAB PO SCH (08:44)
[2024-07-24] MEDS: METOPROLOL SUCC *XL* 12.5MG PER 1/2 TAB (TopROL *XL*) PO SCH (08:44)
[2024-07-24] MEDS: SUMAtriptan SUCCINATE 25 MG TAB PO PRN (08:47)
[2024-07-24] MEDS: ENOXAPARIN 40MG/0.4ML SYRINGE (J1650 PER 10MG) SC SCH (09:00)
[2024-07-24] MEDS ORDERED: levETIRAcetam INJection 500 MG in DEXTROSE 5% (D5W) MINI-BAG PLU 100 ML IV SCH (11:00)
[2024-07-24] MEDS: SUCRALFATE 1 GM TAB PO SCH (12:00)
[2024-07-24 12:48] LABS: ALKALINE PHOSPHATASE 48 U/L (35-104); ALT/SGPT 59 U/L (7.0-40); AST/SGOT 66 U/L (<34); BILIRUBIN,TOTAL 0.7 MG/DL (0.3-1.2); BLOOD UREA NITROGEN 5 MG/DL (9-23); CALCIUM LEVEL 9.6 MG/DL (8.5-10.1); CARBON DIOXIDE LEVEL 24 MMOL/L (20-31); CHLORIDE LEVEL 109 MMOL/L (98-107); CREATININE FOR GFR 0.73 MG/DL (0.55-1.30); GLOMERULAR FILTRATION RATE > 60.0 (>51); GLUCOSE, FASTING 103 MG/DL (60-100); POTASSIUM SERUM 3.7 MMOL/L (3.5-5.1); SODIUM LEVEL 142 MMOL/L (136-145); TOTAL PROTEIN 6.8 G/DL (5.7-8.2)
[2024-07-24 13:18] LABS: CPK CREATINE PHOSPHOKINASE 1991 U/L (34-145)
[2024-07-24] MEDS: PANTOPRAZOLE 40MG TAB (PROTONIX) PO SCH (17:23)
[2024-07-24] MEDS: oxyCODONE 5MG TAB PO PRN (18:12)
[2024-07-24] MEDS: ATORVASTATIN 20 MG TAB PO SCH (20:19)
[2024-07-24] MEDS: PRAMIPEXOLE 1 MG TAB PO SCH (20:20)
[2024-07-24] MEDS: traZODone 50 MG TAB PO SCH (20:20)
[2024-07-24] MEDS: PARoxetine 20MG TABLET PO SCH (20:20)
[2024-07-25 04:29] LABS: HEMOGLOBIN 13.2 g/dl (12.0-15.5); MEAN CORPUSCULAR HEMOGLOBIN 30.8 pg (27.0-33.0); MEAN CORPUSCULAR HGB CONC 33.8 g/dl (32.0-36.5); MEAN CORPUSCULAR VOLUME 90.9 fl (80.0-96.0); PLATELET COUNT, AUTOMATED 289 10^3/uL (150-450); RED BLOOD COUNT 4.29 10^6/uL (4.00-5.40); WHITE BLOOD COUNT 13.2 10^3/uL (4.0-10.0)
[2024-07-25 04:37] VITALS: BP 164/95; TEMP 98.2; O2SAT 100
[2024-07-25 04:58] LABS: ALBUMIN 3.9 G/DL (3.2-5.2); ALKALINE PHOSPHATASE 50 U/L (35-104); ALT/SGPT 59 U/L (7.0-40); AST/SGOT 64 U/L (<34); BILIRUBIN,TOTAL 0.9 MG/DL (0.3-1.2); BLOOD UREA NITROGEN 5 MG/DL (9-23); CALCIUM LEVEL 9.9 MG/DL (8.5-10.1); CARBON DIOXIDE LEVEL 24 MMOL/L (20-31); CHLORIDE LEVEL 108 MMOL/L (98-107); CREATININE FOR GFR 0.68 MG/DL (0.55-1.30); GLOMERULAR FILTRATION RATE > 60.0 (>51); GLUCOSE, FASTING 99 MG/DL (60-100); POTASSIUM SERUM 3.9 MMOL/L (3.5-5.1); SODIUM LEVEL 143 MMOL/L (136-145); TOTAL PROTEIN 6.5 G/DL (5.7-8.2)
[2024-07-25 08:00] VITALS: BP 143/96; TEMP 97.9; O2SAT 99
[2024-07-25] MEDS: NS 1,000 ML IV ONE (09:16)
[2024-07-25 11:48] VITALS: BP 155/80; O2SAT 99
[2024-07-25] MEDS ORDERED: DIAZ5TAB PO (12:20)
[2024-07-25] MEDS ORDERED: LISI5TAB11 PO (12:20)
[2024-07-25] MEDS: MIRALAX *UNIT DOSE* 17GM PACKET PO PRN (12:31)
[2024-07-25 17:44] VITALS: BP 158/94; O2SAT 100
[2024-07-25 17:46] VITALS: BP 156/98
[2024-07-25] MEDS: oxyCODONE 5MG TAB PO STA (17:46)
== END 2024-07-25 18:48 | DRG 101 ==
LOC: M ICU 21:48
PROVIDERS: ADMIT Student in an Organized Health Care Education/Training Program; ATTEND Internal Medicine Pulmonary Disease
DX: G40.909 Epilepsy, unspecified, not intractable, without status epilepticus (principal); M62.82 Rhabdomyolysis; E87.20 Acidosis, unspecified; F13.230 Sedative, hypnotic or anxiolytic dependence with withdrawal, uncomplicated; F41.9 Anxiety disorder, unspecified; F43.10 Post-traumatic stress disorder, unspecified; K31.84 Gastroparesis; G90.A Postural orthostatic tachycardia syndrome [POTS]; G25.81 Restless legs syndrome; K21.9 Gastro-esophageal reflux disease without esophagitis; K27.9 Peptic ulcer, site unspecified, unspecified as acute or chronic, without hemorrhage or perforation; G89.29 Other chronic pain; E78.5 Hyperlipidemia, unspecified; E03.9 Hypothyroidism, unspecified; I10 Essential (primary) hypertension; G43.909 Migraine, unspecified, not intractable, without status migrainosus; Z79.899 Other long term (current) drug therapy; Z91.048 Other nonmedicinal substance allergy status; Z88.8 Allergy status to other drugs, medicaments and biological substances; Z79.890 Hormone replacement therapy

== ENCOUNTER 2024-07-25 18:21 | Inpatient (IN) | payer OTHER ==
[~2024-07-25] VITALS: Ht 162.6 cm; Wt 55.8 kg
[2024-07-25 19:05] VITALS: BP 145/86; TEMP 97.5; O2SAT 99
[2024-07-25] MEDS ORDERED: HOME MED LIST COMPLETE! XX SCH (19:45)
[2024-07-25] MEDS: ATORVASTATIN 20 MG TAB PO SCH (20:22)
[2024-07-25] MEDS: diazePAM 5MG TABLET PO SCH (20:22)
[2024-07-25] MEDS: traZODone 50 MG TAB PO PRN (20:22)
[2024-07-25] MEDS: PARoxetine 20MG TABLET PO SCH (20:22)
[2024-07-25] MEDS: PRAMIPEXOLE 1 MG TAB PO SCH (20:29)
[2024-07-25] MEDS ORDERED: diazePAM 5MG TABLET PO ONE (21:00)
[2024-07-25] MEDS: diphenhydrAMINE 25MG CAP PO PRN (23:31)
[2024-07-25] MEDS: SODIUM CHLORIDE NASAL 0.65% SPRAY BTL (OCEAN) PRN (23:39)
[2024-07-26] MEDS: SUMAtriptan SUCCINATE 25 MG TAB PO PRN (06:03)
[2024-07-26] MEDS: LEVOTHYROXINE 75MCG TABLET (0.075MG) PO SCH (06:03)
[2024-07-26 06:32] VITALS: BP 170/70; TEMP 98.2
[2024-07-26 07:31] VITALS: BP 166/92; TEMP 97.9; O2SAT 100
[2024-07-26] MEDS: FLUDROCORTISONE ACETATE 0.1 MG TAB PO SCH (08:21)
[2024-07-26] MEDS: amLODIPine 5 MG TAB PO SCH (08:21)
[2024-07-26] MEDS: lisinopriL 5 MG TAB PO SCH (08:22)
[2024-07-26 09:55] VITALS: BP 156/90
[2024-07-26] MEDS: IBUPROFEN 400MG TAB PO PRN (15:18)
[2024-07-26 16:12] VITALS: BP 137/74; TEMP 97.1; O2SAT 98
[2024-07-26] MEDS: MOM 30ML SUSPENSION UDC PO PRN (19:42)
[2024-07-26] MEDS: ACETAMINOPHEN 325 MG TAB PO PRN (23:41)
[2024-07-27 06:54] VITALS: TEMP 97.9; O2SAT 97
[2024-07-27] MEDS: MAALOX 30 ML SUSP *UDC PO PRN (12:08)
[2024-07-27 14:56] VITALS: BP 164/92; TEMP 97.6; O2SAT 99
[2024-07-27 20:00] VITALS: BP 195/107; TEMP 97.9; O2SAT 100
[2024-07-28] MEDS: diazePAM 5MG TABLET PO ONE (04:01)
[2024-07-28 06:30] VITALS: BP 137/75; TEMP 97.6; O2SAT 100
[2024-07-28 15:08] VITALS: BP 158/90; TEMP 97.1; O2SAT 99
[2024-07-29 06:10] VITALS: BP 153/100; TEMP 97.5; O2SAT 98
[2024-07-29 14:55] VITALS: BP 152/73; TEMP 97.7; O2SAT 99
[2024-07-30 06:22] VITALS: BP 127/87; TEMP 98; O2SAT 100
[2024-07-30 08:16] VITALS: BP 151/79
[2024-07-30 17:25] VITALS: BP 143/78; TEMP 97.3; O2SAT 98
[2024-07-31 06:46] VITALS: BP 130/60; TEMP 97.8; O2SAT 100
[2024-07-31 15:42] VITALS: BP 141/78; TEMP 98.1; O2SAT 100
[2024-08-01 06:22] VITALS: BP 136/68; TEMP 97.2; O2SAT 100
[2024-08-01 15:43] VITALS: BP 137/74; TEMP 97.9; O2SAT 100
[2024-08-02 06:36] VITALS: BP 148/92; TEMP 96.6; O2SAT 96
[2024-08-02 07:40] VITALS: BP 128/82
[2024-08-02 15:25] VITALS: BP 104/76; TEMP 97.9; O2SAT 98
[2024-08-03 06:24] VITALS: BP 146/78; TEMP 97.1; O2SAT 99
[2024-08-03 08:50] VITALS: BP 127/75
[2024-08-03 08:52] VITALS: BP 127/75
[2024-08-03] MEDS ORDERED: DIAZ5TAB PO (12:39)
[2024-08-03] MEDS ORDERED: PARO20TA3 PO (12:39)
[2024-08-03] MEDS ORDERED: LEVO75TA4 PO (12:39)
[2024-08-03] MEDS ORDERED: ABIL1TAB11 PO (12:39)
[2024-08-03] MEDS ORDERED: TRAZ-252 PO (12:39)
== END 2024-08-03 13:55 | disposition home or self-care (01) | DRG 880 ==
LOC: M PSY 18:21
PROVIDERS: ADMIT Psychiatry & Neurology Neurology; ATTEND Psychiatry & Neurology Neurology
DX: F41.1 Generalized anxiety disorder (principal); E87.20 Acidosis, unspecified; G43.909 Migraine, unspecified, not intractable, without status migrainosus; E03.9 Hypothyroidism, unspecified; F17.200 Nicotine dependence, unspecified, uncomplicated; K31.84 Gastroparesis; T42.4X5A Adverse effect of benzodiazepines, initial encounter; G90.A Postural orthostatic tachycardia syndrome [POTS]; G40.909 Epilepsy, unspecified, not intractable, without status epilepticus; G25.81 Restless legs syndrome; K21.9 Gastro-esophageal reflux disease without esophagitis; K27.9 Peptic ulcer, site unspecified, unspecified as acute or chronic, without hemorrhage or perforation; G89.29 Other chronic pain; E78.5 Hyperlipidemia, unspecified; I10 Essential (primary) hypertension; F43.10 Post-traumatic stress disorder, unspecified; F32.A Depression, unspecified; Z81.8 Family history of other mental and behavioral disorders; Z79.890 Hormone replacement therapy; Z79.899 Other long term (current) drug therapy; Z88.8 Allergy status to other drugs, medicaments and biological substances; Z91.018 Allergy to other foods; Z62.810 Personal history of physical and sexual abuse in childhood

== ENCOUNTER → 2024-12-03 | Outpatient (CLI) | payer OTHER ==
[~2024-12-03] MED LIST changes: +ABIL1TAB11 PO; +PARO20TA3 PO
== END ==
LOC: M WUC 13:52
PROVIDERS: ATTEND Nurse Practitioner Family
DX: M25.512 Pain in left shoulder (principal); M50.30 Other cervical disc degeneration, unspecified cervical region

== ENCOUNTER → 2024-12-18 | Outpatient (REF) | payer OTHER ==
[2024-12-18 14:00] LABS: HEMATOCRIT 43.7 % (36.0-47.0); HEMOGLOBIN 14.3 g/dl (12.0-15.5); MEAN CORPUSCULAR HEMOGLOBIN 30.7 pg (27.0-33.0); MEAN CORPUSCULAR HGB CONC 32.7 g/dl (32.0-36.5); MEAN CORPUSCULAR VOLUME 93.8 fl (80.0-96.0); PLATELET COUNT, AUTOMATED 263 10^3/uL (150-450); RED BLOOD COUNT 4.66 10^6/uL (4.00-5.40); WHITE BLOOD COUNT 8.2 10^3/uL (4.0-10.0)
[2024-12-18 14:02] LABS: ALBUMIN 3.8 G/DL (3.2-5.2); BILIRUBIN,TOTAL 0.3 MG/DL (0.3-1.2); CALCIUM LEVEL 9.3 MG/DL (8.5-10.1); CHOLESTEROL RISK RATIO 2.41 (<5); CREATININE FOR GFR 0.79 MG/DL (0.55-1.30); FREE T4 1.3 NG/DL (0.89-1.76); GLOMERULAR FILTRATION RATE 87.2 (>51); HDL CHOLESTEROL 67.2 MG/DL (>40); NON-HDL-C 94.8 MG/DL; POTASSIUM SERUM 3.8 MMOL/L (3.5-5.1); THYROID STIMULATING HORMONE 0.99 uIU/ML (0.55-4.78); TOTAL PROTEIN 6.8 G/DL (5.7-8.2)
[2024-12-18 14:17] LABS: HEMOGLOBIN A1c 5.4 % (4.0-6.0)
== END ==
LOC: M LAB REF 13:17
PROVIDERS: ATTEND Student in an Organized Health Care Education/Training Program
DX: K25.9 Gastric ulcer, unspecified as acute or chronic, without hemorrhage or perforation (principal); Z68.32 Body mass index [BMI] 32.0-32.9, adult; Z13.820 Encounter for screening for osteoporosis; E03.9 Hypothyroidism, unspecified

== ENCOUNTER → 2025-03-23 | Outpatient (CLI) | payer OTHER ==
[~2025-03-23] MED LIST changes: +TOPI-257 PO; -TOPI100T9 PO
== END ==
LOC: M WHC 09:16
PROVIDERS: ATTEND Student in an Organized Health Care Education/Training Program
DX: M85.89 Other specified disorders of bone density and structure, multiple sites (principal)

== ENCOUNTER → 2025-03-25 | Outpatient (CLI) | payer OTHER | LOC: M PLARAD 08:45 | PROVIDERS: ATTEND Neuromusculoskeletal Medicine, Sports Medicine | DX: M75.02 Adhesive capsulitis of left shoulder (principal); M75.42 Impingement syndrome of left shoulder; M25.412 Effusion, left shoulder; S43.82XA Sprain of other specified parts of left shoulder girdle, initial encounter; X58.XXXA Exposure to other specified factors, initial encounter; Y92.9 Unspecified place or not applicable; Y93.9 Activity, unspecified; Y99.9 Unspecified external cause status ==

== ENCOUNTER 2025-06-08 06:06 | Day surgery (SDC) | payer OTHER ==
[~2025-06-08] VITALS: Ht 162.6 cm; Wt 60.2 kg
[~2025-06-08 06:06] MED LIST changes: +ARIP1TAB10 PO; +CALC-356 PO; +METO1TAB33 PO; +POTA1TAB23 PO; +PROZ20CA12 PO; +TRAZ-257 PO
[2025-06-08] MEDS ORDERED: LR 1,000 ML IV SCH (06:15)
[2025-06-08] MEDS ORDERED: dexAMETHasone 4 MG/ML 1 ML VIAL As Ordered ONE (06:46)
[2025-06-08] MEDS ORDERED: LIDOCAINE 2% 100 MG/5 ML SDV (FOR ANES.) As Ordered ONE (06:47)
[2025-06-08] MEDS ORDERED: ROCURONIUM BROMIDE 50MG/5ML VIAL As Ordered ONE (06:48)
[2025-06-08] MEDS ORDERED: ONDANSETRON 4MG/2ML VIAL As Ordered ONE (06:51)
[2025-06-08] MEDS ORDERED: ACETAMINOPHEN 1000MG/100ML IV BAG As Ordered ONE (06:54)
[2025-06-08] MEDS: ceFAZolin SOD 2 GM IV ONCE IV ONE (07:30)
[2025-06-08] MEDS: dexAMETHasone 10 MG/1 ML VIAL PRES.FREE PN ONE (07:36)
[2025-06-08] MEDS: ROPIvacaine 0.5% 30ML VIAL PN ONE (07:36)
[2025-06-08] MEDS: MIDAZOLAM INJ 2 MG/2 ML VIAL IV PRN (07:36)
[2025-06-08] MEDS: TRANEXAMIC ACID 100 MG/ML 10ML VIAL As Ordered ONE (08:00)
[2025-06-08] MEDS: LIDOCAINE W/EPINEPHrine 1% 20 ML VIAL As Ordered ONE (08:40)
[2025-06-08] MEDS ORDERED: LABETALOL 100 MG/20 ML VIAL As Ordered ONE (08:50)
[2025-06-08] MEDS ORDERED: SUGAMMADEX SODIUM 200 MG/2 ML VIAL As Ordered ONE (08:55)
[2025-06-08] MEDS: EPINEPHrine 1 MG/ML INJ 30 ML MD-VIAL As Ordered ONE (08:56)
[2025-06-08] MEDS ORDERED: KETOROLAC 30 MG/ML 1 ML VIAL As Ordered ONE (09:24)
[2025-06-08] MEDS ORDERED: DILA2TAB6 PO (10:09)
[2025-06-08] MEDS ORDERED: SUZE50TA PO (10:09)
[2025-06-08] MEDS ORDERED: MORPHINE 4 MG/ML 1 ML VIAL IV PRN (10:10)
[2025-06-08] MEDS: ONDANSETRON 4MG/2ML VIAL IV PRN (10:16)
[2025-06-08 11:28] VITALS: BP 119/63; TEMP 97.1; O2SAT 96
== END 2025-06-08 11:41 | disposition home or self-care (01) ==
LOC: M SDC 06:06
PROVIDERS: ATTEND Neuromusculoskeletal Medicine, Sports Medicine
DX: M75.42 Impingement syndrome of left shoulder (principal); M75.02 Adhesive capsulitis of left shoulder; M25.712 Osteophyte, left shoulder; M19.012 Primary osteoarthritis, left shoulder; I10 Essential (primary) hypertension; E78.00 Pure hypercholesterolemia, unspecified; E03.9 Hypothyroidism, unspecified; G90.A Postural orthostatic tachycardia syndrome [POTS]; F31.9 Bipolar disorder, unspecified; Z79.899 Other long term (current) drug therapy; Z88.8 Allergy status to other drugs, medicaments and biological substances; Z88.5 Allergy status to narcotic agent; Z85.828 Personal history of other malignant neoplasm of skin; G47.30 Sleep apnea, unspecified; Z79.890 Hormone replacement therapy
CPT/HCPCS: 29824; 29826; 93005; J0131; J0165; J0688; J1100; J1885; J1920; J2250; J2405; J2795; J3010

== ENCOUNTER → 2025-06-25 | Outpatient (REF) | payer OTHER ==
[~2025-06-25] MED LIST changes: +DILA2TAB6 PO; +SUZE50TA PO
== END ==
LOC: M LAB REF 16:17
PROVIDERS: ATTEND Pediatrics
DX: S90.822A Blister (nonthermal), left foot, initial encounter (principal)

== ENCOUNTER → 2025-07-02 | Outpatient (RCR) | payer OTHER | LOC: M PT 06-09 09:15 | PROVIDERS: ATTEND Neuromusculoskeletal Medicine, Sports Medicine | DX: M75.02 Adhesive capsulitis of left shoulder (principal); M75.42 Impingement syndrome of left shoulder; M19.012 Primary osteoarthritis, left shoulder ==

== ENCOUNTER 2025-07-28 12:32 | Outpatient (RCR) | payer OTHER ==
[~2025-07-28 12:32] MED LIST changes: -PROZ20CA12 PO; +PROZ20CA25 PO
== END 2025-08-01 ==
LOC: M PT 12:32
PROVIDERS: ATTEND Neuromusculoskeletal Medicine, Sports Medicine
DX: M75.02 Adhesive capsulitis of left shoulder (principal); M75.42 Impingement syndrome of left shoulder; M19.012 Primary osteoarthritis, left shoulder

== ENCOUNTER 2025-08-16 09:47 | Outpatient (RCR) | payer OTHER | END 2025-09-01 | LOC: M PT 09:47 | PROVIDERS: ATTEND Neuromusculoskeletal Medicine, Sports Medicine | DX: M75.02 Adhesive capsulitis of left shoulder (principal); M75.42 Impingement syndrome of left shoulder ==